=== PATIENT | female | born 1960 | race Caucasian/White ===

== ENCOUNTER 2018-09-18 09:00 | Outpatient (RCR) | payer MEDICARE ==
--- NOTE | 2018-09-02 08:16 | NUR ---
08/30/18 Patient in today for Treatment team review. Pt presents clean and neat, alert and oriented x 4. pt in a pleasant mood. Pt recently started Abilify 5mg. Pt states she thinks the medication is helping. Pt states she has been a little hyper but likes it and is "getting things done". Pt states that if she were to feel manic, she will make staff and doctor aware. Pt denies any suicidal thoughts at present time. Pt will continue with IOP 2x/week. Pt will follow up in one month. Treatment team concluded.
--- NOTE | 2018-09-10 07:10 | NUR ---
09/05/18 1047 Patient in office stating that she wanted to make RN aware that she needs an evaluation and someone may be calling here to confirm that she attends IOP. Pt saw RN confused look and stated that she has a misdemeanor and that is was nothing, that it had nothing to do with her. Pt states that they know she is in IOP and may want to confirm. Pt made aware that this will need to be told to the director. Pt made aware that nobody can talk about her unless she signs a consent. Will follow up on this.
--- NOTE | 2018-09-10 07:34 | NUR ---
09/06/18 1042 Patient brought into office with Director. Pt states: "ok, i know what this is all about". RN states to patient that she had been made aware that as per last conversation about and an evaluation and misdemeanor, would be brought to the directors attention. Pt states she and her boyfriend were in the car, driving and were pulled over and had cocaine in the car. Pt states she never did it. She states the car had a tail light out and they were pulled over. She states she had gone to [facility] and has about 5 months probation. She states her tank officer was at her home this morning. Pt states she is complying. Pt became upset stating that she is 57 years old and embarressed over the situation. Pt states this is why she has not brought it up in group, she states she feels ashamed. RN and director have concerns as patient appears manic and has stated that she has been feeling manic since her new medication of Abilify. Doctor is aware of the patients manic behavior as she brought it up to him last week in treatment team. pt stated she feels a little hyper but is okay and is getting things done. Pt stated to the doctor that she is insightful and if she feels something more is going on, she will let him know. Director states to patient that she would like to switch her into a different group. pt states she will try the other group. pt also consented to a random drug test in which Dr Palomares ordered if needed. Pt started to cry and apologize and stated that she was depressed and had wanted to self medicate. Pt again stated that she is 57 years old and should not have been doing this. Will continue to follow up and monitor patient.
--- NOTE | 2018-09-10 07:44 | NUR ---
09/06/18 1110 Call to [facility] to inquire on sending patient over for a drug test. RN told by Eliel that the lab needs to know the code: 2126 drug abuse panel 10-50. As per Kalina, the lab closes at 1200 today. Patient is aware and went over to the lab to be tested. Will follow up on this.
--- NOTE | 2018-09-10 08:19 | NUR ---
09/09/18 1041 Call to patient to confirm IOP and Treatment day this and Sunday. Pt states she will be in for IOP on and Sunday and for Tx team Sunday.
--- NOTE | 2018-09-12 07:28 | NUR ---
09/10/18 1121 Call to lab for patients drug panel results. As per fence laborer, lab results were not sent in until sunday evening. Lab tests are still pending. Will fax over when ready.
--- NOTE | 2018-09-16 07:47 | NUR ---
09/12/18 [id number] As per double bottom driver, pt is not coming in today as she has family visiting.
--- NOTE | 2018-09-16 10:43 | NUR ---
09/13/18 Patient in today for Treatment team. Pt recently stated to director and RN that she had legal troubles and had cocaine. Pt states this was around 03/13/18. Pt states she was in residential for 3 days. Pt denies partaking of the drug as she was pulled over for a broken tail light with her boyfriend and they were both arrested. pt states she has a public health service officer. Pt is very upset stating that she was depressed and was turning to self medicating. Pt states she feels like a hypocrit and has disappointed people. Pt states this has been weighing on her for several months. Pt admitted that the 5mg of Abilify made her feel manic and that she is going back to 2.5mg. Pt was given an order for drug testing in which she did. Lab test is pending but Pt states it will all be negative. As per doctor, if the tests show positive, he will stop prescribing the Xanax. For now, pt will remain in the same group and pt states she will discuss what is going on in group therapy. pt will continue with IOP but will attend 3x/week. Treatment team concluded.
[~2018-09-18 09:00] MED LIST: ABILIFY5 MG PO; HARVONI; IMITREX50 M1 PO; LAMICTAL150 MG PO; LAMICTAL200 M1 PO; MULT VITAMI1 PO; MULTIVITAMI1 PO; NEXIUM20 M1 PO; NORTRIPTYLIN50 MG PO; NORTRIPTYLINE H25 MG PO; NORTRIPTYLINE H50 MG PO; PAMELOR25 MG PO; PROZAC20 M1 PO; XANAX1 MG PO
== END 2018-09-19 23:59 | disposition still patient (30) ==
LOC: PATHWAYS 09:00
PROVIDERS: ATTEND Specialist
DX: F31.60 Bipolar disorder, current episode mixed, unspecified (principal); F41.1 Generalized anxiety disorder; F33.8 Other recurrent depressive disorders; F14.11 Cocaine abuse, in remission

== ENCOUNTER 2021-05-03 13:31 | Emergency (ER) | payer MEDICARE ==
[~2021-05-03] VITALS: Ht 149.9 cm; Wt 75.0 kg
[2021-05-03] MEDS ORDERED: GABAPENTIN100 MG PO (14:06)
[2021-05-03] MEDS ORDERED: BACTROBAN TOP (14:59)
[2021-05-03] MEDS ORDERED: KEFLEX500 MG PO (14:59)
[2021-05-03] MEDS ORDERED: BACTRIM DS1 TAB PO (14:59)
[2021-05-03 15:20] VITALS: BP 134/65
[2021-05-09] MEDS ORDERED: NEXIUM40 M1 PO (12:55)
[2021-05-09] MEDS ORDERED: TRILEPTAL300 M1 PO (12:55)
== END 2021-05-03 15:20 | disposition home or self-care (01) ==
LOC: ED 13:31
DX: N61.0 Mastitis without abscess (principal); F31.9 Bipolar disorder, unspecified; F41.9 Anxiety disorder, unspecified; F17.200 Nicotine dependence, unspecified, uncomplicated

== ENCOUNTER 2021-06-27 10:56 | Emergency (ER) | payer MEDICARE ==
[~2021-06-27] VITALS: Ht 149.9 cm; Wt 75.0 kg
[~2021-06-27 10:56] MED LIST changes: +BACTRIM DS1 TAB PO; +BACTROBAN TOP; +EXCEDRIN PO; +GABAPENTIN100 MG PO; +KEFLEX500 MG PO; +NEXIUM40 M1 PO; +TRILEPTAL300 M1 PO
[2021-06-27] MEDS ORDERED: TRAMADOL HYDROC50 M1 PO (11:37)
[2021-06-27 11:41] VITALS: BP 121/78
[2021-06-27] MEDS ORDERED: EXCEDRIN EXTRA1 TA1 PO (11:51)
[2021-06-27] MEDS ORDERED: VITAMIN D35000 UNI1 PO (11:52)
== END 2021-06-27 11:57 | disposition home or self-care (01) ==
LOC: ED 10:56
DX: M16.12 Unilateral primary osteoarthritis, left hip (principal); F31.9 Bipolar disorder, unspecified; F41.9 Anxiety disorder, unspecified; F17.210 Nicotine dependence, cigarettes, uncomplicated

== ENCOUNTER 2021-10-08 10:59 | Emergency (ER) | payer MEDICARE ==
[~2021-10-08] VITALS: Ht 149.9 cm; Wt 76.0 kg
[2021-10-08] VITALS (13 sets, daily range): BP systolic 113–139; BP diastolic 55–92
[~2021-10-08 10:59] MED LIST changes: +EXCEDRIN EXTRA1 TA1 PO; +TRAMADOL HYDROC50 M1 PO; +VITAMIN D35000 UNI1 PO
[2021-10-08 13:40] LABS: IMMATURE GRANULOCYTES 0.3 % (0.0-5.0); MEAN CELL VOLUME 94.2 fL CALC (80.0-100.0); MEAN CORPUSCULAR HGB 31.7 pG CALC (26.0-32.0); MEAN CORPUSCULAR HGB CONC 33.7 g/dL CAL (32.0-36.0); NEUT# 10.57 thou/uL (2.00-7.15); RED BLOOD COUNT 3.97 mill/uL (4.20-5.60); RED CELL DISTRI WIDTH 14.7 % (11.5-15.5)
[2021-10-08 13:55] LABS: HEMATOCRIT 37.4 % (37.0-47.0); HEMOGLOBIN 12.6 g/dl (12.0-16.0)
[2021-10-08 14:04] LABS: ALBUMIN 3.9 g/dL (3.2-5.0); ALKALINE PHOSPHATASE 93 u/l (38-126); BUN 4 mg/dL (8-23); BUN/CREATININE RATIO 6 (12-20 (CALC)); CHLORIDE 100 mmol/l (95-108); CREATININE 0.7 mg/dL (0.5-1.0); GFR > 60 ML/MIN (>=60 (CALC)); GFR FOR AFR.AMER. > 60 ML/MIN (>=60 (CALC)); LIPASE 50 u/l (23-300); POTASSIUM 4.5 mmol/l (3.5-5.1); SGOT/AST 40 u/l (9-36); SODIUM 135 mmol/l (137-146); TOTAL PROTEIN 7.2 g/dL (6.3-8.2)
[2021-10-08 14:05] LABS: ANION GAP 18 (6-22 (CALC)); BILIRUBIN, TOTAL 0.7 mg/dL (0.0-1.4); CARBON DIOXIDE 22 mmol/l (22-30)
[2021-10-08 14:05] LABS: URINE BILIRUBIN - DIPSTICK NEGATIVE (NEGATIVE); URINE BLOOD DIPSTICK NEGATIVE (NEGATIVE); URINE COLOR YELLOW; URINE GLUCOSE - DIPSTICK NEGATIVE (NEGATIVE); URINE KETONE NEGATIVE (NEGATIVE); URINE LEUK ESTERASE NEGATIVE (NEGATIVE); URINE PROTEIN - DIPSTICK NEGATIVE (NEG-TRACE); URINE SPECIFIC GRAVITY <=1.005; URINE UROBILINOGEN - DIPSTICK 0.2 E.U./dL (0.2)
[2021-10-08 14:05] LABS: ACT PARTIAL THROMBO TIME 27.2 SECONDS (20.0-32.5); PROTHROMBIN TIME 10.1 SECONDS (9.0-12.5)
[2021-10-08 14:07] LABS: URINE NITRITE - DIPSTICK NEGATIVE (Negative)
== END 2021-10-08 16:30 | disposition left against medical advice (07) ==
LOC: ED 10:59
DX: N61.1 Abscess of the breast and nipple (principal); C50.919 Malignant neoplasm of unspecified site of unspecified female breast; F31.9 Bipolar disorder, unspecified; F41.9 Anxiety disorder, unspecified; F17.200 Nicotine dependence, unspecified, uncomplicated; Z20.822 Contact with and (suspected) exposure to COVID-19; Z91.19 Patient's noncompliance with other medical treatment and regimen

== ENCOUNTER 2022-11-30 12:36 | Emergency (ER) | payer MEDICARE ==
[~2022-11-30] VITALS: Ht 149.9 cm; Wt 76.2 kg
[~2022-11-30 12:36] MED LIST changes: +ANASTROZOLE1 MG PO; +CALCIUM500 M5 PO; +CENTRUM SILVER1 TA1 PO; +CUBICIN RF500 MG IV; +VERZENIO150 MG PO; +VITAMIN D2000 UNI1 PO
[2022-11-30 12:44] VITALS: BP 153/71
[2022-11-30 13:00] VITALS: BP 150/67
[2022-11-30 13:02] LABS: BASO% 0.7 % (0-3); EOS% 1.3 % (0-8); HEMATOCRIT 45.6 % (37.0-47.0); HEMOGLOBIN 14.6 g/dl (12.0-16.0); IMMATURE GRANULOCYTES 0.2 % (0.0-5.0); LYMPH% 31.7 % (15-41); MEAN CELL VOLUME 97.6 fL CALC (80.0-100.0); MEAN CORPUSCULAR HGB 31.3 pG CALC (26.0-32.0); NEUT# 5.12 thou/uL (2.00-7.15); NEUT% 60.1 % (42-76); RED BLOOD COUNT 4.67 mill/uL (4.20-5.60)
[2022-11-30 13:28] LABS: ALBUMIN 4.8 g/dL (3.2-5.0); ALKALINE PHOSPHATASE 105 u/l (38-126); ANION GAP 11 (6-22 (CALC)); BUN 8 mg/dL (8-23); BUN/CREATININE RATIO 13 (12-20 (CALC)); CARBON DIOXIDE 28 mmol/l (22-30); CHLORIDE 105 mmol/l (95-108); CREATININE 0.7 mg/dL (0.5-1.0); GFR FOR AFR.AMER. > 60 ML/MIN (>=60 (CALC)); GFR OTHER RACES > 60 ML/MIN (>=60 (CALC)); POTASSIUM 4.2 mmol/l (3.5-5.1); SGOT/AST 37 u/l (9-36); SODIUM 140 mmol/l (137-146); TOTAL PROTEIN 7.7 g/dL (6.3-8.2)
[2022-11-30 13:30] LABS: BILIRUBIN, TOTAL 0.3 mg/dL (0.02-1.3)
[2022-11-30 13:50] LABS: URINE BILIRUBIN - DIPSTICK NEGATIVE (NEGATIVE); URINE BLOOD DIPSTICK NEGATIVE (NEGATIVE); URINE COLOR YELLOW; URINE GLUCOSE - DIPSTICK NEGATIVE (NEGATIVE); URINE KETONE NEGATIVE (NEGATIVE); URINE LEUK ESTERASE NEGATIVE (NEGATIVE); URINE PROTEIN - DIPSTICK NEGATIVE (NEG-TRACE); URINE SPECIFIC GRAVITY <=1.005; URINE UROBILINOGEN - DIPSTICK 0.2 E.U./dL (0.2)
[2022-11-30 13:52] LABS: URINE NITRITE - DIPSTICK NEGATIVE (Negative)
[2022-11-30] MEDS ORDERED: OMNI-PAC300 MG PO (14:01)
[2022-11-30 14:25] VITALS: BP 150/67
== END 2022-11-30 14:36 | disposition home or self-care (01) ==
LOC: ED 12:36
PROVIDERS: Family Medicine
DX: N61.0 Mastitis without abscess (principal); F31.9 Bipolar disorder, unspecified; F41.9 Anxiety disorder, unspecified; F17.210 Nicotine dependence, cigarettes, uncomplicated; R31.9 Hematuria, unspecified